=== PATIENT | male | born 1955 | race Caucasian/White ===

== ENCOUNTER 2021-11-03 17:35 | Emergency (ER) | payer MEDICARE, OTHER ==
[~2021-11-03] VITALS: Ht 188 cm; Wt 136.1 kg
[2021-11-03 18:05] VITALS: BP_SYST 190
[2021-11-03] MEDS ORDERED: NACL 0.9% 1,000 ML IV ONE ×2 (18:15→20:00)
--- NOTE | 2021-11-03 18:20 | NUR ---
Patient to ER bed 02 to gown for evaluation. Side rails up. Report given to RUFUS Kathleen.
--- NOTE | 2021-11-03 18:35 | NUR ---
Given report from Paramedics, Patient taken to CT....
[2021-11-03 18:51] LABS: BASOPHILS # (AUTO) 0.1 K/uL (0.0-0.2); BASOPHILS % (AUTO) 0.7 % (0.0-2.0); EOSINOPHILS # (AUTO) 0.1 K/uL (0.0-0.4); EOSINOPHILS % (AUTO) 0.8 % (0.0-4.0); HEMOGLOBIN 13.1 g/dL (14.0-18.0); LYMPHOCYTES # (AUTO) 1.1 K/uL (1.0-5.5); MEAN CORPUSCULAR HEMOGLOBIN 31 pg (27-31); MEAN CORPUSCULAR HGB CONC 35 % (32-36); MEAN CORPUSCULAR VOLUME 90 fL (79.0-98.0); MONOCYTES # (AUTO) 0.9 K/uL (0.0-1.0); MONOCYTES % (AUTO) 9.9 % (1.7-9.3); NEUTROPHILS # (AUTO) 7.1 K/uL (1.8-7.7); NEUTROPHILS % (AUTO) 76.6 % (40.0-70.0); PLATELET COUNT (AUTO) 293 K/uL (130-430); RED BLOOD CELL COUNT(AUTO) 4.21 MIL/uL (4.2-6.2); RED CELL DISTRIBUTION WIDTH 11.7 % (9.0-15.0); WHITE BLOOD COUNT (AUTO) 9.3 K/uL (4.8-10.8)
--- NOTE | 2021-11-03 19:07 | NUR ---
Report to Fabian HOOPER.
[2021-11-03 19:13] LABS: ANION GAP 7 (5-15); CHLORIDE 99 mmol/L (98-107); CREATININE 1.61 mg/dL (0.55-1.30); GLUCOSE 256 mg/dL (70-99); POTASSIUM 3.5 mmol/L (3.5-5.1); SODIUM SERUM 138 mmol/L (136-145); UREA NITROGEN, BLOOD 29 mg/dL (8-21)
[2021-11-03 19:24] LABS: ALANINE AMINOTRANSFERASE 29 U/L (12-78); ALBUMIN 3.3 g/dL (3.4-4.8); ASPARTATE AMINOTRANSFERASE 20 U/L (10-37); TOTAL BILIRUBIN 0.5 mg/dL (0.0-1.0)
[2021-11-03] MEDS ORDERED: hydrALAZINE HCL 20 MG/ML VIAL IVP ONE (19:45)
[2021-11-03 19:49] LABS: CALCIUM 13.7 mg/dL (8.4-11.0)
[2021-11-03 19:50] LABS: GFR AFRICAN AMERICAN 56 mL/min (>90)
--- NOTE | 2021-11-03 20:00 | NUR ---
pt is alert and oriented x 4, came in with alter mental status, he is hard of hearing, was hypertensive overt 200/110. he is coopertative, no sign of respiratory distress, denies pain.
[2021-11-03 20:20] LABS: BILIRUBIN,URINE NEGATIVE (NEGATIVE); BLOOD, URINE NEGATIVE (NEGATIVE); CLARITY/URINE CLEAR (CLEAR); COLOR,URINE YELLOW (YELLOW); GLUCOSE,URINE NEGATIVE (NEGATIVE); KETONES,URINE NEGATIVE (NEGATIVE); LEUKOCYTE ESTERASE ,URINE NEGATIVE (NEGATIVE); NITRITE, URINE NEGATIVE (NEGATIVE); PH,URINE 6.5 (5.0-8.0); PROTEIN URINE NEGATIVE (NEGATIVE); UROBILINOGEN,URINE 0.2 (0.2-1.0)
--- NOTE | 2021-11-03 20:23 | NUR ---
COVID SWAB COLLECTED
--- NOTE | 2021-11-04 00:12 | NUR ---
Patient to be transferred to [facility]. Is being transferred due to higher level of care of high level of calcium. Receiving facility has accepting physician and available space. ER physician has signed transfer form. Patient or responsible republican has agreed to transfer and signed form. Patient belongings inventoried and will be sent with patient. Copy of nursing notes, lab reports, EKG, Physicians Orders and X-rays to be sent with patient. Report called to at receiving facility. Receiving physician is jone. patient went with the ambulance.
[2021-11-04 00:42] VITALS: BP_SYST 176
--- NOTE | 2021-11-17 06:04 | NUR ---
ADDENDUM Nacl 0.9 % in 1000ml start time 18:58 end time 19:58
== END 2021-11-04 00:12 | disposition short-term general hospital (02) ==
LOC: SED 17:35
DX: R53.1 Weakness (principal); E83.52 Hypercalcemia; R53.83 Other fatigue; I10 Essential (primary) hypertension; Z79.899 Other long term (current) drug therapy; Z20.822 Contact with and (suspected) exposure to COVID-19
CPT/HCPCS: 99291; 96374; 70450; 96361; 87426; 80053; 82140; 85025; 84484; 36415; 93005; 76376; 94660; 99292; 81003; J0360; J7030; 99285